=== PATIENT | male | born 1975 | race Caucasian/White ===

== ENCOUNTER → 2023-07-26 | Outpatient (CLI) | payer BC | LOC: 3 N SLEEP 13:48 | PROVIDERS: ATTEND Internal Medicine | DX: G47.33 Obstructive sleep apnea (adult) (pediatric) (principal) ==

== ENCOUNTER 2023-10-01 07:03 | Outpatient (CLI) | payer BC ==
--- NOTE | 2023-10-02 10:34 | P.PCN ---
Description of Procedure: CLINICAL: Titration with positive air pressure has been done for correction of respiratory abnormalities during sleep. DESCRIPTION OF PROCEDURE: The standard montage for clinical polysomnography included the electroencephalogram, the electrocardiogram, the mentalis surface electromyography and Lead II cardiography. The respiratory battery consisted of measurements of nasal /buccal air flow, pressure transducer measurements from the nose, thoracic and /or abdominal effort and intercostal surface electromyography. Video monitoring has been done to check for any parasomnia events. Nocturnal oxyhemoglobin saturations were obtained by finger oximetry. Step-lebron titration with positive airway pressure was utilized to control respiratory events. Raw data of sleep recording has been reviewed and is adequate. RESULTS: Sleep efficiency was lately decreased 84.7 %. Latency to sleep onset was normal 20.5 minutes.]. Sleep architecture showed stage N1 was increased to 18.7 %, Delta sleep was short 0.7 %, REM sleep was short 13.8 %. Heart rate was minimum 59 BPM, maximum 75 BPM, average 68 BPM. EMG showed 0 periodic limb movements per hour. PAP titration have been done with CPAP up to the pressure 17 cm H2O. Patient had problems with CPAP, switched to BPAP. BPAP titrated up to 17/13 cm H2O. The best results were at the pressure 17 cm H2O. Apnea hypopnea index reduced to 5.3. IMPRESSION: 1. Obstructive sleep apnea hypopnea syndrome mostly on controle with PAP treatment. 2. No significant periodic limb movements have been documented. Please see other impressions from consultation. PLAN: 1. The patient will have treatment with positive air pressure equipment with the level of pressure AutoPAP 7-17 cm H2O and should use it every night for the whole night. 2. Watching weight. 3. Sleep hygiene with regular time in bed for at least 8 hours. 4. No driving if feeling any sleepiness. 5. I will see the patient for follow up visit to explain the results of the test, recommendations, check compliance with treatment and make any necessary adjustment related to mask fitting, pressure and humidification. 6. Please check iron profile including ferritin level. Low level of iron may increase risk for periodic limb movements Thank you very much for allowing me to participate in the management of your patient. Sincerely, Ernst Gandara MD, PhD, FAASM Diplomat of [employer] Sleep [employer] [facility] [employer] [place]
== END 2023-10-01 17:10 | disposition home or self-care (01) ==
LOC: 3 N SLEEP 07:03
PROVIDERS: ATTEND Internal Medicine
DX: G47.33 Obstructive sleep apnea (adult) (pediatric) (principal)
CPT/HCPCS: 95811